=== PATIENT | male | born 1935 | race Caucasian/White ===

== ENCOUNTER 2020-10-17 12:39 | Emergency (ER) | payer OTHER ==
[~2020-10-17] VITALS: Ht 170.2 cm; Wt 77.3 kg
[2020-10-17 12:46] VITALS: Ht 170.2 cm; Wt 77.3 kg
[2020-10-17 14:01] VITALS: BP 129/76
[2020-10-17] MEDS ORDERED: HYDROCODON-ACE1 EAC7 PO (15:28)
== END 2020-10-17 15:38 | disposition home or self-care (01) ==
LOC: D.ER 12:39
DX: S42.002A Fracture of unspecified part of left clavicle, initial encounter for closed fracture (principal); W19.XXXA Unspecified fall, initial encounter; E11.9 Type 2 diabetes mellitus without complications